=== PATIENT | female | born 2000 | race Hispanic/Latino ===

== ENCOUNTER 2023-11-29 22:58 | Emergency (ER) | payer SELFPAY ==
[~2023-11-29] VITALS: Ht 160 cm; Wt 52.2 kg
[~2023-11-29 22:58] MED LIST: DICLEGIS1 TAB PO; KEFLEX500 MG PO; PRENATAL MULTI1 CAP PO
[2023-11-30 01:53] LABS: BASO% 0.3 % (0-3); EOS% 0.3 % (0-8); HEMATOCRIT 29.4 % (37.0-47.0); HEMOGLOBIN 10.4 g/dl (12.0-16.0); LYMPH% 23.9 % (15-41); MEAN CELL VOLUME 79.2 fL CALC (80.0-100.0); MEAN CORPUSCULAR HGB CONC 35.4 g/dL CAL (32.0-36.0); MONO% 6.5 % (2-13); NEUT# 6.52 thou/uL (2.00-7.15); RED BLOOD COUNT 3.71 mill/uL (4.20-5.60); RED CELL DISTRI WIDTH 13.2 % (11.5-15.5)
[2023-11-30 01:54] LABS: URINE BILIRUBIN - DIPSTICK Negative (NEGATIVE); URINE BLOOD DIPSTICK Negative (NEGATIVE); URINE GLUCOSE - DIPSTICK Negative (NEGATIVE); URINE KETONE Trace mg/dL (NEGATIVE); URINE NITRITE - DIPSTICK Negative (Negative); URINE PROTEIN - DIPSTICK Trace mg/dL (NEG-TRACE)
[2023-11-30 02:01] LABS: URINE COLOR Yellow; URINE LEUK ESTERASE Large (NEGATIVE)
[2023-11-30 02:02] LABS: URINE BACTERIA MANY hpf; URINE MUCUS FEW hpf (NONE-FEW); URINE SQUAMOUS EPITHELIAL CELL FEW EPI/hpf (0-FEW); URINE WBC 20-50 WBC/hpf (0-5)
[2023-11-30 02:03] LABS: URINE AMORPH SEDIMENT MANY hpf (NONE-FEW)
[2023-11-30 02:12] LABS: ALBUMIN 3.8 g/dL (3.2-5.0); ALKALINE PHOSPHATASE 44 u/l (38-126); AMYLASE 91 u/l (30-110); ANION GAP 10 (6-22 (CALC)); BILIRUBIN, TOTAL 0.2 mg/dL (0.02-1.3); BUN 9 mg/dL (7-17); BUN/CREATININE RATIO 14 (12-20 (CALC)); CARBON DIOXIDE 23 mmol/l (22-30); CHLORIDE 107 mmol/l (95-108); CREATININE 0.7 mg/dL (0.5-1.0); GFR FOR AFR.AMER. > 60 ML/MIN (>=60 (CALC)); GFR OTHER RACES > 60 ML/MIN (>=60 (CALC)); LIPASE 95 u/l (23-300); POTASSIUM 3.6 mmol/l (3.5-5.1); SGOT/AST 23 u/l (14-36); SODIUM 137 mmol/l (137-146); TOTAL PROTEIN 6.9 g/dL (6.3-8.2)
[2023-11-30] MEDS ORDERED: KEFLEX500 MG PO (02:49)
[2023-11-30] MEDS ORDERED: [UNRECOGNIZED DRUG - OTHER] PO (02:50)
[2023-11-30] MEDS ORDERED: CEPHALEXIN MONOHYDRATE 500 MG/CAP PO ONE (02:50)
[2023-11-30] MEDS ORDERED: CALCIUM CARBONATE 750 MG/TAB PO ONE (02:50)
[2023-11-30 03:19] VITALS: BP 113/74
== END 2023-11-30 04:46 | disposition home or self-care (01) | DRG 832 ==
LOC: ED 22:58
PROVIDERS: Family Medicine
DX: O23.40 Unspecified infection of urinary tract in pregnancy, unspecified trimester (principal); N39.0 Urinary tract infection, site not specified; O99.619 Diseases of the digestive system complicating pregnancy, unspecified trimester; K29.70 Gastritis, unspecified, without bleeding; Z3A.00 Weeks of gestation of pregnancy not specified